=== PATIENT | female | born 1955 | race African-American/Black ===

== ENCOUNTER 2019-06-28 08:14 | Outpatient (CLI) | payer MEDICARE ==
[2019-06-28 13:51] LABS: Bilirubin Negative (Negative); Blood, Urine Negative (Negative); Clarity Clear (Clear); Glucose, Urine (Dipstick) Normal (Negative); Leukocyte 500 Leu/uL (Negative); Nitrite Negative (Negative); Protein, Urine (Dipstick) Negative (Neg-Trace); RBC/HPF 0-3 HPF (0-3); Urobilinogen Normal mg/dL (Less than 2); WBC/HPF 21-50 HPF (0-3)
[2019-06-28 13:55] LABS: Bacteria/HPF 1+ HPF (None Seen)
[2019-06-28 14:06] LABS: Anion Gap 15 mmol/L (10-20); BUN (Urea Nitrogen) 11 mg/dL (9.8-20.1); Calc. Creatinine Clearance 0 mL/min (70-130); Carbon Dioxide 26 mmol/L (23-31); Chloride 106 mmol/L (98-107); Estimated GFR-MDRD 86; Glucose 97 mg/dL (80-115); Hemoglobin 13.6 g/dL (12.0-16.0); Lymphocytes 44 % (21-51); MDiff Complete? YES; Mean Corpuscular HGB CONC 33.5 g/dL (32.0-36.0); Mean Corpuscular Hemoglobin 32.5 pg (27.0-31.0); Mean Corpuscular Volume 97.1 fL (78.0-98.0); Mean Platelet Volume 8.2 fL (7.4-10.4); Monocytes 10 % (0-10); Neutrophil 44 % (42-75); Platelet Count 275 thou/uL (130-400); Platelet Morphology Comment Appears Adequate; Potassium 4.7 mmol/L (3.5-5.1); RBC Distribution Width 10.9 % (11.5-14.5); RBC Morphology Normal; Reactive Lymphocytes 2 % (0-10); Red Blood Cell (RBC) Count 4.18 mill/uL (4.20-5.40); Sodium 142 mmol/L (136-145); White Blood Cell (WBC) Count 5.9 thou/uL (4.8-10.8)
--- NOTE | 2019-06-28 17:36 | EKG ---
Test Reason : Blood Pressure : / mmHG Vent. Rate : 068 BPM Atrial Rate : 068 BPM P-R Int : 156 ms QRS Dur : 100 ms QT Int : 418 ms P-R-T Axes : 075 059 064 degrees QTc Int : 444 ms Normal sinus rhythm Incomplete right bundle branch block Early repolarization No previous ECGs available Confirmed by DR. Nik LANGSTON ([id number]) on 06/28/2019 5:35:51 PM Referred By: SATNAM Confirmed By:DR. Nik LANGSTON
== END 2019-06-28 08:15 | disposition home or self-care (01) ==
LOC: LABBT 08:14
PROVIDERS: ATTEND Orthopaedic Surgery
DX: Z01.818 Encounter for other preprocedural examination (principal); M17.12 Unilateral primary osteoarthritis, left knee
CPT/HCPCS: 80048; 81001; 85025; 87081; 93005; 93010

== ENCOUNTER 2019-07-10 05:56 | Day surgery (SDC) | payer MEDICARE ==
[2019-06-28 12:28] VITALS: BMI 27.8
[2019-07-10] MEDS ORDERED: Sodium Chloride 0.9% 0 ML ONE (07:46)
[2019-07-10] MEDS ORDERED: Fentanyl 100 MCG/2 ML VIAL ONE ×5 (07:46→12:31)
[2019-07-10] MEDS ORDERED: Midazolam HCl 2 mg/2 ml Vial ONE (07:46)
[2019-07-10] MEDS ORDERED: Tranexamic Acid 1,000 MG/10 ML VIAL ONE (07:46)
[2019-07-10] MEDS ORDERED: Sodium Chloride 0.9% 100 ML ONE (07:47)
[2019-07-10] MEDS ORDERED: Vancomycin 1.5 GRAM/300 ML BAG 1.5 GM in Premix Bag 1 BAG IVPB SCH (08:00)
[2019-07-10 08:35] LABS: Prothrombin Time 13.2 SEC (12.0-14.7)
[2019-07-10] MEDS ORDERED: Promethazine HCl 25 MG/ML VIAL IM PRN ×2 (08:40→09:09)
[2019-07-10] MEDS ORDERED: Ondansetron PF 4 MG/2 ML Vial IVP PRN ×2 (08:40→09:09)
[2019-07-10] MEDS ORDERED: traMADol HCl 50 MG TAB PO PRN ×2 (08:40)
[2019-07-10] MEDS ORDERED: Ropivacaine HCl/PF 250 ML in Premix Bag 1 BAG NERVE BLCK SCH (08:40)
[2019-07-10] MEDS ORDERED: Zolpidem Tartrate 5 MG TAB PO PRN ×2 (08:40→09:09)
[2019-07-10] MEDS ORDERED: HYDROcodone/Acetaminophen 10/325 mg Tablet PO PRN (08:40)
[2019-07-10] MEDS ORDERED: Fentanyl 100 MCG/2 ML VIAL SLOW IVP PRN (08:41)
[2019-07-10] MEDS ORDERED: Acetaminophen 325 MG TAB PO PRN (09:09)
[2019-07-10] MEDS ORDERED: diphenhydrAMINE 25 MG CAP PO PRN (09:09)
[2019-07-10] MEDS ORDERED: Lidocaine 1% PF 5 ML VIAL ONE (09:48)
[2019-07-10] MEDS ORDERED: ePHEDrine/0.9% NaCl/PF SYRINGE 50 mg/10 ml ONE (09:48)
[2019-07-10] MEDS ORDERED: PROPOFOL 200 MG/20 ML VIAL ONE (09:48)
[2019-07-10] MEDS ORDERED: Dexamethasone 20 MG/5 ML VIAL ONE (09:48)
[2019-07-10] MEDS ORDERED: Ropivacaine 0.5% HCl/PF (150 MG/30 ML VIAL) ONE (09:48)
[2019-07-10] MEDS ORDERED: Ondansetron PF 4 MG/2 ML Vial ONE (09:48)
[2019-07-10] MEDS ORDERED: Ropivacaine 0.2% HCl/PF (40 MG/20 ML VIAL) ONE (09:48)
[2019-07-10] MEDS ORDERED: Bupivacaine HCl 0.5%/Epinephrine 1:200,000/PF 30 ml Vial ONE (09:48)
--- NOTE | 2019-07-10 11:38 | RAD ---
XR Knee Lt 2 View History: Total knee replacement. Comparison: None. Findings: Satisfactory appearance total knee arthroplasty and patellar resurfacing. Expected postoper ative gas and edema. Impression: Satisfactory postoperative appearance.
[2019-07-10] MEDS: Sodium Chloride 0.9% 1,000 ML IV SCH ×2 (13:18→18:40)
[2019-07-10] MEDS: Ketorolac Tromethamine 30 MG/ML VIAL IVP SCH ×3 (13:59→23:37)
[2019-07-10] MEDS: Clindamycin/D5W 900 MG in Premix Bag 1 BAG IVPB SCH ×2 (13:59→18:38)
[2019-07-10] MEDS: HYDROcodone/Acetaminophen 10/325 mg Tablet PO PRN (14:08)
--- NOTE | 2019-07-10 17:03 | PDOC.HOSPP ---
- Subjective Encounter Date: 07/10/19 Encounter Time: 11:45 Subjective: pt up in bed feels well - Objective Vital Signs & Weight: Vital Signs (12 hours) Temp Pulse Resp BP BP Pulse Ox 07/10/19 14:41 130/77 07/10/19 13:01 98.2 F 64 18 138/87 100 Weight Weight 200 lb Hospitalist ROS - Review of Systems Respiratory: denies: cough, dry, shortness of breath, hemoptysis, SOB with excertion, pleuritic pain, sputum, wheezing, other Cardiovascular: denies: chest pain, palpitations, orthopnea, paroxysmal noc. dyspnea, edema, light headedness, other Gastrointestinal: denies: nausea, vomiting, abdominal pain, diarrhea, constipation, melena, hematochezia, other - Medication Medications: Active Medications Generic Name Dose Route Start Last Admin Trade Name Freq PRN Reason Stop Dose Admin Hydrocodone Bitart/Acetaminophen 2 tab 07/10/19 08:40 07/10/19 14:08 [place] 10/325 PO 2 tab Q4H PRN Administration PAIN (4-6) Clindamycin Phosphate/Dextrose 50 mls @ 100 mls/hr 07/10/19 12:00 07/10/19 13 :59 900 mg/ Device IVPB 07/10/19 18:29 50 mls Q6HR PRASANNA Administration Sodium Chloride 1,000 mls @ 100 mls/hr 07/10/19 09:15 07/10/19 13:18 Normal Saline 0.9% IV Not Given .Q10H PRASANNA Ketorolac Tromethamine 15 mg 07/10/19 12:00 07/10/19 13:59 Toradol IVP 07/12/19 06:01 15 mg Q6HR PRASANNA Administration - Exam Neck: negative: supple, symmetric, no JVD, no thyromegaly, no lymphadenopathy, no carotid bruit, JVD Heart: negative: RRR, no murmur, no gallops, no rubs, normal peripheral pulses, irregular, diminshed peripheral pulses, murmur present, II/IV, III/IV Respiratory: negative: CTAB, no wheezes, no rales, no ronchi, normal chest expansion, no tachypnea, normal percussion, rales, rhonchi, tachypneic, wheezes Hosp A/P (1) Hypothyroid Code(s): E03.9 - HYPOTHYROIDISM, UNSPECIFIED Status: Acute (2) Hyperlipidemia Code(s): E78.5 - HYPERLIPIDEMIA, UNSPECIFIED Status: Acute - Plan will continue home meds, asa bid for dvt ppx. bp stable. will follow along.
[2019-07-10] MEDS: Atorvastatin Calcium 10 MG TAB PO SCH (21:10)
[2019-07-10] MEDS: Aspirin 81 mg Enteric Coated Tablet PO SCH (21:10)
[2019-07-11] MEDS: Sodium Chloride 0.9% 1,000 ML IV SCH ×2 (04:49→20:01)
[2019-07-11 06:09] LABS: Hemoglobin 10.3 g/dL (12.0-16.0); Mean Corpuscular HGB CONC 33.9 g/dL (32.0-36.0); Mean Corpuscular Hemoglobin 32.7 pg (27.0-31.0); Mean Corpuscular Volume 96.7 fL (78.0-98.0); Mean Platelet Volume 8.5 fL (7.4-10.4); Platelet Count 219 thou/uL (130-400); RBC Distribution Width 11.2 % (11.5-14.5); Red Blood Cell (RBC) Count 3.16 mill/uL (4.20-5.40); White Blood Cell (WBC) Count 12.3 thou/uL (4.8-10.8)
[2019-07-11] MEDS: Ketorolac Tromethamine 30 MG/ML VIAL IVP SCH ×4 (06:41→23:59)
[2019-07-11] MEDS: Levothyroxine Sodium 75 MCG TAB PO SCH (06:42)
[2019-07-11] MEDS ORDERED: FLU VACC TS2019-20(65YR UP)/PF 180 MCG/0.5 ML SYRINGE IM ONE (09:00)
[2019-07-11] MEDS ORDERED: Prevnar 13-Val Conj/PF 0.5 ML SYRINGE IM ONE (09:00)
--- NOTE | 2019-07-11 09:06 | PRG ---
DATE OF SERVICE: 07/11/2019 SUBJECTIVE: Myrtle is a 64-year-old female postop day 1 from left total knee arthroplasty. She is comfortable and sitting up. She did have some nausea yesterday evening when attempting to stand and walk with therapy. Therefore, she was put back to bed, but otherwise pain has been relatively well controlled. OBJECTIVE: VITAL SIGNS: Temperature 98.4, pulse 61, respiratory rate 16 and nonlabored, blood pressure 94/51. GENERAL: She is alert and oriented to person, place, time, situation. Responsive and appropriate with examiner. Grossly nonfocal. EXTREMITIES: Incision is clean. No strike through. She is neurovascularly intact in the left lower extremity. LABORATORY DATA: Hemoglobin and hematocrit 10.3 and 30.6. IMPRESSION: A 64-year-old female postop day 1 left total knee arthroplasty, doing well. PLAN: Continue current care. The patient desires to be discharged to home postop day 2, which is tomorrow. Job ID: [id number]
[2019-07-11] MEDS: HYDROcodone/Acetaminophen 10/325 mg Tablet PO PRN ×3 (09:46→18:34)
[2019-07-11] MEDS: Multivitamin W/ Minerals 1 TAB PO SCH (09:47)
[2019-07-11] MEDS: Aspirin 81 mg Enteric Coated Tablet PO SCH ×2 (09:47→21:06)
[2019-07-11] MEDS: Ferrous Gluconate 324 MG TAB PO SCH ×2 (09:47→18:23)
[2019-07-11] MEDS: Senokot S 8.6-50 MG TAB PO SCH ×2 (09:48→21:06)
--- NOTE | 2019-07-11 10:35 | OP ---
DATE OF PROCEDURE: 07/10/2019 PREOPERATIVE DIAGNOSIS: Degenerative joint disease, left knee. POSTOPERATIVE DIAGNOSIS: Degenerative joint disease, left knee. PROCEDURE PERFORMED: Left total knee arthroplasty using [place] Triathlon 4 femur, 4 tibia, 9 mm CS X3 polyethylene, and A29 patella. COLLISION REPAIRER: Tha. BLOOD LOSS: Minimal. SPECIMEN: None. DRAINS: None. COMPLICATION: None. TOURNIQUET TIME: 54 minutes. PROCEDURE IN DETAIL: After informed consent was obtained in the preoperative holding area, the patient was taken to the operative suite where general anesthesia was induced. Once adequate level of general anesthesia was obtained, the patient was positioned and a well-padded tourniquet was placed around the left proximal thigh. The left lower extremity was then prepped and draped in the usual sterile fashion. Prior to exsanguination, a time-out was called and all members of the surgical team agreed upon site, surgeon, and patient. The extremity was then exsanguinated and the tourniquet was raised. A midline longitudinal incision was then made directly over the patella extending 2 fingerbreadths above the superior pole of the patella and 2 fingerbreadths inferior to the inferior patellar pole of the patella. Deeper subcutaneous layers were dissected sharply and local bleeding was controlled with Bovie electrocautery. A quad tendon longitudinal split was then made sharply and a median parapatellar arthrotomy was carried out both sharp and with Bovie electrocautery, carried down to 1 fingerbreadth medial to the tibial tubercle. The knee was then placed into flexion and the patella was everted nicely, and a copious fat pad ectomy was performed allowing for greater exposure of the tibia. The computer-assisted distal femoral fiducial was then placed and pinned firmly, and the distal femoral cutting guide was pinned firmly into place. The oscillating saw was then used to remove the appropriate amount of bone. The 4-in-1 cutting block was then placed on the distal femur and the oscillating saw was used to remove the appropriate amount of bone off the anterior, posterior, and chamfer cuts. After completion of bone cuts, the anterior cruciate ligament was resected sharply and the posterior cruciate ligament retractor was placed and the tibia was subluxed for better exposure. Partial meniscectomies were carried out, and the tibial computer-assisted fiducial was pinned, and the cutting guide was placed. Oscillating saw was then used to remove the bone, with Hohmann retractors used to take care and protect the collateral ligaments. After the tibial resection was performed, a laminar nuclear medicine physician was placed in between the freshened bone cuts. The knee placed at 90 degrees and further bilateral meniscectomies were carried out, and the curved osteotome and curettage were used to remove any excess bone spurs in the posterior compartment. The trial femoral component, tibial baseplate were placed with the appropriate polyethylene trial insert with an appropriate polyethylene spacer and patellar button. The knee was taken through full range of motion with flexion and extension from 0 to 90 degrees and patellar broach squarely in the trochlea without any squinting or subluxation noted. The knee was also stable to varus and valgus stressing at 0, 15, 45, and 90 degrees of flexion. The drawer was negative. All trial components were then removed and the keel punch was used to provide the appropriate defect in the tibia with a mallet. The freshened bone cuts were copiously irrigated with pulsatile lavage of about 1.5 L to remove all excess debris. The freshened bone cuts were then dried with suction and lap sponge. The knee was placed in flexion and retractors were placed to provide access to all bone cuts. Tobramycin-impregnated methyl methacrylate cement was then placed on the freshened bone cuts and implants which were malleted firmly into place. Curettage and Lumpkin elevators were used to remove any excess bone cement. The knee was placed into full extension and the patellar button was placed under compression, and the cement was allowed to cure. Once completed, the components were again taken through full range of motion and copious irrigation of the knee was carried out with another liter of normal saline. All components were inspected fully with full range of motion and varus and valgus stressing. There was no laxity noted and full extension was observed clinically. Primary closure was accomplished with #2 interrupted Vicryl stitch of the arthrotomy defect. This was oversewn with a #2 running Quill barbed stitch. The gravitational platelet system was then injected into the arthrotomy prior to closure. The subcutaneous layer was then closed with a running 0 barbed Monocryl stitch and skin closure accomplished with a running subcuticular 3-0 Monocryl barbed Quill stitch and augmented with cement on the skin. Tourniquet was lowered. Good spontaneous return of distal pulses was noted clinically and a sterile dressing was applied to the incision. The procedure was terminated without any complications. The patient was awakened in the operative suite and the was removed, and the patient was taken to the recovery room in stable condition. Job ID: [id number]
--- NOTE | 2019-07-11 18:03 | PDOC.HOSPP ---
- Subjective Encounter Date: 07/11/19 Encounter Time: 09:20 Subjective: Pt seen for followup re:dyslipidemia. Feels well, no complaints. - Objective Vital Signs & Weight: Vital Signs (12 hours) Temp Pulse Resp BP Pulse Ox 07/11/19 15:46 98.5 F 71 18 112/67 100 07/11/19 07:21 98.2 F 67 18 94/54 L 100 Weight Admit Weight 200 lb Weight 200 lb I&O: 07/10/19 07/11/19 07/12/19 06:59 06:59 06:59 Intake Total 2450 Output Total 1675 Balance 775 Result Diagrams: 07/11/19 04:57 Additional Labs: Labs and MARs reviewed by me Hospitalist ROS - Review of Systems Cardiovascular: denies: chest pain, palpitations, orthopnea, paroxysmal noc. dyspnea, edema, light headedness Gastrointestinal: denies: nausea, vomiting, abdominal pain, diarrhea, constipation, melena, hematochezia - Medication Medications: Active Medications Generic Name Dose Route Start Last Admin Trade Name Freq PRN Reason Stop Dose Admin Hydrocodone Bitart/Acetaminophen 2 tab 07/10/19 08:40 07/11/19 13:26 [place] 10/325 PO 2 tab Q4H PRN Administration PAIN (4-6) Aspirin 81 mg 07/10/19 21:00 07/11/19 09:47 Ecotrin PO 81 mg BID PRASANNA Administration Atorvastatin Calcium 10 mg 07/10/19 21:00 07/10/19 21:10 Lipitor PO 10 mg HS PRASANNA Administration Ferrous Gluconate 324 mg 07/11/19 08:00 07/11/19 09:47 Fergon PO 324 mg BID-WM PRASANNA Administration Ropivacaine 250 ml/ Device 250 mls @ 10 mls/hr 07/10/19 08:40 07/11/19 12:27 NERVE BLCK 07/13/19 08:39 250 mls INF PRASANNA Administration Sodium Chloride 1,000 mls @ 100 mls/hr 07/10/19 09:15 07/11/19 04:49 Normal Saline 0.9% IV Not Given .Q10H PRASANNA Iron/Minerals/Multivitamins 1 tab 07/11/19 09:00 07/11/19 09:47 Theragran M PO 1 tab DAILY PRASANNA Administration Ketorolac Tromethamine 15 mg 07/10/19 12:00 07/11/19 12:27 Toradol IVP 07/12/19 06:01 15 mg Q6HR PRASANNA Administration Levothyroxine Sodium 75 mcg 07/11/19 06:00 07/11/19 06:42 Synthroid PO 75 mcg 0600 PRASANNA Administration Senna/Docusate Sodium 2 tab 07/11/19 09:00 07/11/19 09:48 Senokot S PO 2 tab BID PRASANNA Administration - Exam General Appearance: NAD Eye: anicteric sclera ENT: moist mucosa Neck: supple Heart: RRR Respiratory: CTAB Gastrointestinal: soft, non-tender Extremities: no clubbing Skin: no rashes Musculoskeletal - other findings: s/p L knee surgery Psychiatric: normal affect, normal behavior Hosp A/P (1) Hyperlipidemia Code(s): E78.5 - HYPERLIPIDEMIA, UNSPECIFIED Status: Chronic (2) Hypothyroid Code(s): E03.9 - HYPOTHYROIDISM, UNSPECIFIED Status: Chronic - Plan PT/OT, out of bed/ambulate Continue Zocor. Continue synthroid.
[2019-07-11] MEDS: Atorvastatin Calcium 10 MG TAB PO SCH (21:06)
[2019-07-12] MEDS: Sodium Chloride 0.9% 1,000 ML IV SCH ×2 (02:51→10:09)
[2019-07-12] MEDS: Levothyroxine Sodium 75 MCG TAB PO SCH (05:17)
[2019-07-12] MEDS: HYDROcodone/Acetaminophen 10/325 mg Tablet PO PRN (05:17)
[2019-07-12] MEDS: Ketorolac Tromethamine 30 MG/ML VIAL IVP SCH (05:18)
[2019-07-12 06:05] LABS: Hemoglobin 10.5 g/dL (12.0-16.0); Mean Corpuscular HGB CONC 33.4 g/dL (32.0-36.0); Mean Corpuscular Hemoglobin 32.4 pg (27.0-31.0); Mean Corpuscular Volume 97.2 fL (78.0-98.0); Mean Platelet Volume 8.5 fL (7.4-10.4); Platelet Count 200 thou/uL (130-400); RBC Distribution Width 11.3 % (11.5-14.5); Red Blood Cell (RBC) Count 3.23 mill/uL (4.20-5.40); White Blood Cell (WBC) Count 11.1 thou/uL (4.8-10.8)
[2019-07-12] MEDS: Multivitamin W/ Minerals 1 TAB PO SCH (09:00)
[2019-07-12] MEDS: Aspirin 81 mg Enteric Coated Tablet PO SCH (09:00)
[2019-07-12] MEDS: Ferrous Gluconate 324 MG TAB PO SCH (09:00)
[2019-07-12] MEDS: Senokot S 8.6-50 MG TAB PO SCH (09:00)
[2019-07-12] MEDS ORDERED: Prevnar 13-Val Conj/PF 0.5 ML SYRINGE IM ONE (09:15)
[2019-07-12 16:43] VITALS: BP 112/66; TEMP 100.1
== END 2019-07-12 16:45 | disposition home or self-care (01) ==
LOC: SDC 05:56 → SJJU 09:10 → SDC 07-12 16:45
PROVIDERS: ATTEND Orthopaedic Surgery
PROC: 0SRD0JZ Replacement of Left Knee Joint with Synthetic Substitute, Open Approach (ICD-10-PCS; principal; 2019-07-10)
PROC: 8E0YXBZ Computer Assisted Procedure of Lower Extremity (ICD-10-PCS; 2019-07-10)
DX: M17.12 Unilateral primary osteoarthritis, left knee (principal); E03.9 Hypothyroidism, unspecified; E78.5 Hyperlipidemia, unspecified; Z79.899 Other long term (current) drug therapy
CPT/HCPCS: 36415; 36416; 85027; 85610; 90471; 90662; 90670; C1713; C1776; G0008; G0009; J0670; J0690; J1100; J1885; J2001; J2250; J2405; J2704; J2795; J3010; J3490